=== PATIENT | female | born 1955 | race Caucasian/White ===

== ENCOUNTER 2020-08-12 07:06 | Emergency (ER) | payer MEDICARE, BC ==
[~2020-08-12] VITALS: Ht 167.6 cm; Wt 84.0 kg
[~2020-08-12 07:06] MED LIST: ASCO500T4 PO; CEPH-264 PO; HYDR12.58 PO; KRIL500C PO; MULT-246 PO; PRED1DRO OP; VITA1TAB19 PO; biotin PO; vitamin D PO
[2020-08-12 07:15] VITALS: BP 163/76
--- NOTE | 2020-08-12 07:39 | PHYS DOC ---
Past History Past Medical History: No Pertinent History Past Surgical History: No Surgical History Alcohol Use: None General Adult EDM: Chief Complaint: ELBOW PROBLEM HPI: HPI: 64-year-old female presents with left elbow pain. She slipped at home because her dog peed on the floor. Her feet went out front of her and she fell straight down onto her buttocks and left elbow. She has pain at the left elbow and at the right low back. She denies hitting her head or loss of consciousness. She does not have any other complaints at this time. Review of Systems: Review of Systems: Constitutional: Denies fever or chills Eyes: Denies change in visual acuity HENT: Denies nasal congestion or sore throat Respiratory: Denies cough or shortness of breath Cardiovascular: Denies chest pain or edema GI: Denies abdominal pain, nausea, vomiting, bloody stools or diarrhea : Denies dysuria Musculoskeletal: Right low back pain, left elbow pain Integument: Denies rash Neurologic: Denies headache, focal weakness or sensory changes Endocrine: Denies polyuria or polydipsia Lymphatic: Denies swollen glands Psychiatric: Denies depression or anxiety Allergies: Allergies: Allergies Coded Allergies Type Severity Reaction Last Updated Verified cortisone Allergy Unknown 08/12/20 Yes Physical Exam: PE: Constitutional: Well developed, well nourished, no acute distress, non-toxic appearance. [] HENT: Normocephalic, atraumatic, bilateral external ears normal, oropharynx moist, no oral exudates, nose normal. [] Eyes: PERRLA, EOMI, conjunctiva normal, no discharge. [] Neck: Normal range of motion, no tenderness, supple, no stridor. [] Cardiovascular: Heart rate regular rhythm, no murmur [] Lungs & Thorax: Bilateral breath sounds clear to auscultation [] Abdomen: Bowel sounds normal, soft, no tenderness, no masses, no pulsatile masses. [] Skin: Warm, dry, no erythema, no rash. [] Back: Right sacroiliac joint tenderness, no CVA tenderness. [] Extremities: Tenderness of the left elbow, pain with flexion past 100 degrees, no obvious deformity or ecchymosis. [] Neurologic: Alert and oriented X 3, normal motor function, normal sensory function, no focal deficits noted. [] Psychologic: Affect normal, judgement normal, mood normal. [] EKG: EKG: [] Radiology/Procedures: Radiology/Procedures: [] Impressions: EXAM: Left elbow, 3 views. HISTORY: Pain. COMPARISON: None. FINDINGS: 3 views of the left elbow are obtained. There is a minimally displaced radial head fracture with associated elbow effusion. There is mild degenerative spurring along the anterior coronoid process. There is an enthesophyte along the posterior olecranon. There is a suspected chronic nonunited fracture fragment or chronic fragmented osteophyte involving the trochlea. There are degenerative changes involving the medial and lateral epicondyles. IMPRESSION: Minimally displaced radial head fracture with associated elbow effusion. Electronically signed by: Yi Olivo MD (08/12/2020 8:39 AM) [id number] DICTATED AND SIGNED BY: YI OLIVO MD DATE: 08/12/20 0839 CC: ALPHONSO EDUARDO DO; TRXIIE MOORE ~ Heart Score: Risk Factors: Risk Factors: DM, Current or recent (<one month) smoker, HTN, HLP, family history of CAD, obesity. Risk Scores: Score 0 - 3: 2.5% MACE over next 6 weeks - Discharge Home Score 4 - 6: 20.3% MACE over next 6 weeks - Admit for Clinical Observation Score 7 - 10: 72.7% MACE over next 6 weeks - Early Invasive Strategies Course & Med Decision Making: Course & Med Decision Making Pertinent Labs and Imaging studies reviewed. (See chart for details) The patient does have a minimally displaced radial head fracture. This appears to be a Bebeto type I fracture. I will place her in a sling for the next 24 to 48 hours. She should then start range of motion exercises. I have also given her a phone number for orthopedics for follow-up. I will give her a short course of [place] for her pain. She is stable for discharge at this time. [] Dragon Disclaimer: Treasure Disclaimer: This electronic medical record was generated, in whole or in part, using a voice recognition dictation system. Departure Departure: Impression: Primary Impression: Fracture of radial head, left, closed Qualified Codes: S52.122A - Displaced fracture of head of left radius, initial encounter for closed fracture Referrals: TRIXIE MOORE (PCP) Patient Instructions: Elbow Fracture, Radial Head with Rehab-SportsMed, Radial Head Fracture, [id number] Additional Instructions: You can follow-up with the [facility] orthopedic [facility]. Their phone number is [phone]. Scripts Hydrocodone Bit/Acetaminophen (NORCO 5-325 TABLET) 1 Each Tablet 1 TAB PO PRN Q6HRS PRN for PAIN, #10 TAB 0 Refills Prov: ALPHONSO EDUARDO DO 08/12/20 ALPHONSO EDUARDO DO Aug 12, 2020 07:39
[2020-08-12] MEDS ORDERED: HYDROcodone/APAP 5/325MG 1 TAB TABLET ONE (08:09)
--- NOTE | 2020-08-12 08:43 | RAD ---
EXAM: Left elbow, 3 views. HISTORY: Pain. COMPARISON: None. FINDINGS: 3 views of the left elbow are obtained. There is a minimally displaced radial head fracture with associated elbow effusion. There is mild degenerative spurring along the anterior coronoid process. There is an enthesophyte along the posterior olecranon. There is a suspected chronic nonunited fracture fragment or chronic fragmented osteophyte involving the trochlea. There are degenerative changes involving the medial and lateral epicondyles. IMPRESSION: Minimally displaced radial head fracture with associated elbow effusion. Electronically signed by: Yi Olivo MD (08/12/2020 8:39 AM) [id number]
[2020-08-12] MEDS ORDERED: HYDR-3165 PO (08:51)
[2020-08-12] MEDS ORDERED: CYCL-331 PO (08:58)
[2020-08-12] MEDS ORDERED: CYCLOBENZAPRINE 10 MG TABLET. ONE (08:58)
[2020-08-12] MEDS ORDERED: CYCLOBENZAPRINE 10 MG TABLET. PO ONE (09:00)
== END 2020-08-12 09:03 | disposition home or self-care (01) ==
LOC: ER 07:06
DX: S52.122A Displaced fracture of head of left radius, initial encounter for closed fracture (principal); Z88.8 Allergy status to other drugs, medicaments and biological substances; W01.0XXA Fall on same level from slipping, tripping and stumbling without subsequent striking against object, initial encounter; Y93.89 Activity, other specified; Y92.89 Other specified places as the place of occurrence of the external cause; Y99.8 Other external cause status
CPT/HCPCS: 73080; 99284